=== PATIENT | male | born 1955 | race Caucasian/White ===

== ENCOUNTER 2017-09-06 18:18 | Emergency (ER) | payer OTHER, SELFPAY | END 2017-09-06 20:10 | disposition home or self-care (01) | PROVIDERS: Emergency Provider Emergency Medicine; Visit Provider Emergency Medicine | DX: K62.5 Hemorrhage of anus and rectum (principal); T14.8XXA Other injury of unspecified body region, initial encounter | CPT/HCPCS: 36415; 80048; 81003; 81015; 85025; 85610; 99058; 99283 ==

== ENCOUNTER 2017-09-21 14:16 | Emergency (ER) | payer OTHER, SELFPAY ==
[2017-09-21 14:48] VITALS: BP 101/64; PULSE 65; RESP 20; TEMP 36.3; O2SAT 97; BMI 47.5
[2017-09-21 16:10] VITALS: BP 110/67; PULSE 62; RESP 19; O2SAT 94
[2017-09-21 20:15] VITALS: BP 153/74; PULSE 61; RESP 20; O2SAT 97
[2017-09-21 21:15] VITALS: BP 127/62; PULSE 65; RESP 17; O2SAT 95
[2017-09-21 22:19] VITALS: BP 115/65; PULSE 66; RESP 17; O2SAT 94
--- NOTE | 2017-09-21 22:19 | ED.SKABFB ---
HPI - Skin/Abscess/Foreign Bdy General Chief complaint: Skin/Abscess/Foreign Body Stated complaint: States cellulitis of both legs Time Seen by Provider: 09/21/17 22:19 Source: patient, RN notes reviewed and old records reviewed Mode of arrival: ambulatory Limitations: no limitations History of Present Illness HPI narrative: Patient is a 62-year-old male who presents with multiple complaints. He is here frequently. Today he is saying that his left leg hurts and is more swollen. He has chronic lower extremity venous stasis ulcers. He said he was going to wound care today but he missed his appointment on any said he got kicked out of wound care so that is unclear. He denies any fever or chills. He says he did not berry picker his chronic pain medication prescription which is waiting for him at the pharmacy and is requesting something for pain. He was seen and evaluated September 06 with sores on his buttock. At that time he had blood work INR was 3.1 with WBC 8.1. He is afebrile here and has waited for a number of hours. MD complaint: rash and lesion Onset (ago): year(s) Related Data Home Medications Medication Instructions Recorded Confirmed carvedilol [Coreg] 25 mg PO BID #0 11/11/16 clopidogrel [Plavix] 75 mg PO EVERY OTHER DAY #0 11/11/16 lisinopril 40 mg PO QDAY #0 11/11/16 sertraline [Zoloft] 100 mg PO QDAY #0 11/11/16 tamsulosin [Flomax] 2 cap PO HS #0 11/11/16 furosemide 40 mg PO BID #0 01/12/17 gentamicin 1 camilo TOPICAL QDAYP PRN #0 07/14/17 oxycodone-acetaminophen 0 tab PO Q6HP PRN #0 07/14/17 spironolactone 50 mg PO QDAY #0 07/14/17 Previous Rx's Medication Instructions Recorded cetirizine 10 mg PO QDAY #14 tab 01/14/17 atorvastatin [Lipitor] 40 mg PO HS #30 tab 07/15/17 isosorbide mononitrate 60 mg PO QAM #30 tab 07/15/17 warfarin [Coumadin] 5 mg PO QDAY #30 tab 07/15/17 tramadol 50 mg PO Q6HP PRN #10 tab 08/08/17 hydroxyzine HCl 25 mg PO Q4HP PRN #20 tab 09/06/17 Allergies Allergy/AdvReac Type Severity Reaction Status Date / Time No Known Allergies Allergy Uncoded 08/25/17 12:08 Review of Systems Review of Systems All systems reviewed & are unremarkable except as noted in HPI and below Constitutional Denies chills, Denies fever(s), Denies lethargy and Denies weakness Cardiovascular Denies chest pain, Denies irregular heart rhythm, Denies lightheadedness, Denies palpitations, Denies dyspnea, Denies dyspnea on exertion and Denies orthopnea Respiratory Denies cough, Denies dyspnea, Denies dyspnea on exertion and Denies wheezing Gastrointestinal Gastrointestinal: Denies abdominal pain, Denies change in bowel habits, Denies diarrhea, Denies nausea and Denies vomiting Musculoskeletal Reports as per HPI Integumentary/Breasts Reports as per HPI Neurologic Denies weakness Endocrine Denies palpitations Allergic/Immunologic Denies wheezing [facility] Social History Smoking Status: Former smoker Exam Const General: cooperative and ill appearing (Chronically ill) Nutritional Appearance: obese Orientation: alert, awake, oriented x3 and not confused [facility] Head: normocephalic and atraumatic Ears: external ears normal and TM's normal bilaterally Nose: external nose normal and No nasal discharge Face and sinus: sinuses nontender, face symmetric, no sinus tenderness and No dry mucous membranes Mouth: oral mucosae normal and moist mucous membranes Teeth and gingiva: dentition normal Throat: tonsils normal and uvula midline Resp Effort & Inspection: normal respiratory effort, able to speak in complete sentences, no respiratory distress and no use of accessory muscles Auscultation: clear to auscultation bilaterally, no rales, no rhonchi and no wheezes Cardio Rate: regular rate Rhythm: regular rhythm Heart Sounds: no click, no gallops, no murmurs and no rubs Pulses: normal peripheral pulses Skin Rashes: rashes noted Other: Chronic bilateral lower venous stasis on a. No significant worsening and erythema. He does have a small open wound on left lower leg there are 2 areas 1 is actually closed in scabbed over the other still open but no gross pus or drainage. Neuro General: alert, oriented x3, gait normal and no focal motor deficits Cranial Nerves: CN's II-XI intact bilaterally Speech: speech normal Sensory Exam: no sensory deficits noted MDM - Skin/Abscess/Foreign Bdy MDM Narrative Medical decision making narrative: New dressing placed by nurse. Patient wants referral for wound care. At this time is not look to have acute infection blood work recently no abnormalities. His hemodynamically stable. Patient wanting new prescription for pain medication which is denied it is recommended he berry picker the pain medication that is waiting for him at the pharmacy which he says. Medical Records Attestation: I reviewed the patient's medical records. Discharge Plan Departure Patient Disposition: Home, Self-Care Clinical Impression: Open leg wound Discharge Date/Time: 09/22/17 00:18 Interventions: ED Discharge Assessment Last Done: 09/22/17 00:16 Instructions: Venous Stasis Ulcer Activity Restrictions/Additional Instructions: *You have been diagnosed with left leg wound *What to do: At this time does not appear in the affected but does need proper bandaging and cared for. *Take medications as directed -berry picker ear pain pill prescription *Follow up with your primary care provider in 2-3 days, call wound care tomorrow to schedule follow-up appointment *Return to ER if you should have any new, worsening or concerning symptoms Prescriptions: No Action carvedilol [Coreg] 25 MG tablet 25 mg PO BID Qty: 0 RF: 0 clopidogrel [Plavix] 75 MG tablet 75 mg PO EVERY OTHER DAY Qty: 0 RF: 0 lisinopril 40 MG tablet 40 mg PO QDAY Qty: 0 RF: 0 sertraline [Zoloft] 100 MG tablet 100 mg PO QDAY Qty: 0 RF: 0 tamsulosin [Flomax] 0.4 MG capsule,extended release 24hr 2 cap PO HS Qty: 0 RF: 0 furosemide 40 MG tablet 40 mg PO BID Qty: 0 RF: 0 cetirizine 10 MG tablet 10 mg PO QDAY Qty: 14 RF: 0 gentamicin 0.1 % ointment 1 camilo Topical QDAYP PRNQty: 0 RF: 0 spironolactone 25 MG tablet 50 mg PO QDAY Qty: 0 RF: 0 oxycodone-acetaminophen 5 MG/325 MG tablet PO Q6HP PRNQty: 0 RF: 0 atorvastatin [Lipitor] 40 MG tablet 40 mg PO HS Qty: 30 RF: 0 isosorbide mononitrate 60 MG tablet extended release 24 hr 60 mg PO QAM Qty: 30 RF: 0 warfarin [Coumadin] 5 MG tablet 5 mg PO QDAY Qty: 30 RF: 0 tramadol 50 MG tablet 50 mg PO Q6HP PRNQty: 10 RF: 0 hydroxyzine HCl 25 MG tablet 25 mg PO Q4HP PRNQty: 20 RF: 0
[2017-09-21] MEDS: KETOROLAC 60 MG/2 ML VIAL 30 MG IM (23:54)
--- NOTE | 2017-09-22 00:02 | ED_ITS ---
HPI - Skin/Abscess/Foreign Bdy General Chief complaint: Skin/Abscess/Foreign Body Stated complaint: States cellulitis of both legs Time Seen by Provider: 09/21/17 22:19 Source: patient, RN notes reviewed and old records reviewed Mode of arrival: ambulatory Limitations: no limitations History of Present Illness HPI narrative: Patient is a 62-year-old male who presents with multiple complaints. He is here frequently. Today he is saying that his left leg hurts and is more swollen. He has chronic lower extremity venous stasis ulcers. He said he was going to wound care today but he missed his appointment on any said he got kicked out of wound care so that is unclear. He denies any fever or chills. He says he did not bean picker his chronic pain medication prescription which is waiting for him at the pharmacy and is requesting something for pain. He was seen and evaluated September 06 with sores on his buttock. At that time he had blood work INR was 3.1 with WBC 8.1. He is afebrile here and has waited for a number of hours. MD complaint: rash and lesion Onset (ago): year(s) Related Data Home Medications Medication Instructions Recorded Confirmed carvedilol [Coreg] 25 mg PO BID #0 11/11/16 clopidogrel [Plavix] 75 mg PO EVERY OTHER DAY #0 11/11/16 lisinopril 40 mg PO QDAY #0 11/11/16 sertraline [Zoloft] 100 mg PO QDAY #0 11/11/16 tamsulosin [Flomax] 2 cap PO HS #0 11/11/16 furosemide 40 mg PO BID #0 01/12/17 gentamicin 1 camilo TOPICAL QDAYP PRN #0 07/14/17 oxycodone-acetaminophen 0 tab PO Q6HP PRN #0 07/14/17 spironolactone 50 mg PO QDAY #0 07/14/17 Previous Rx's Medication Instructions Recorded cetirizine 10 mg PO QDAY #14 tab 01/14/17 atorvastatin [Lipitor] 40 mg PO HS #30 tab 07/15/17 isosorbide mononitrate 60 mg PO QAM #30 tab 07/15/17 warfarin [Coumadin] 5 mg PO QDAY #30 tab 07/15/17 tramadol 50 mg PO Q6HP PRN #10 tab 08/08/17 hydroxyzine HCl 25 mg PO Q4HP PRN #20 tab 09/06/17 Allergies Allergy/AdvReac Type Severity Reaction Status Date / Time No Known Allergies Allergy Uncoded 08/25/17 12:08 Review of Systems Review of Systems All systems reviewed & are unremarkable except as noted in HPI and below Constitutional Denies chills, Denies fever(s), Denies lethargy and Denies weakness Cardiovascular Denies chest pain, Denies irregular heart rhythm, Denies lightheadedness, Denies palpitations, Denies dyspnea, Denies dyspnea on exertion and Denies orthopnea Respiratory Denies cough, Denies dyspnea, Denies dyspnea on exertion and Denies wheezing Gastrointestinal Gastrointestinal: Denies abdominal pain, Denies change in bowel habits, Denies diarrhea, Denies nausea and Denies vomiting Musculoskeletal Reports as per HPI Integumentary/Breasts Reports as per HPI Neurologic Denies weakness Endocrine Denies palpitations Allergic/Immunologic Denies wheezing [facility] Social History Smoking Status: Former smoker Exam Const General: cooperative and ill appearing (Chronically ill) Nutritional Appearance: obese Orientation: alert, awake, oriented x3 and not confused [facility] Head: normocephalic and atraumatic Ears: external ears normal and TM's normal bilaterally Nose: external nose normal and No nasal discharge Face and sinus: sinuses nontender, face symmetric, no sinus tenderness and No dry mucous membranes Mouth: oral mucosae normal and moist mucous membranes Teeth and gingiva: dentition normal Throat: tonsils normal and uvula midline Resp Effort & Inspection: normal respiratory effort, able to speak in complete sentences, no respiratory distress and no use of accessory muscles Auscultation: clear to auscultation bilaterally, no rales, no rhonchi and no wheezes Cardio Rate: regular rate Rhythm: regular rhythm Heart Sounds: no click, no gallops, no murmurs and no rubs Pulses: normal peripheral pulses Skin Rashes: rashes noted Other: Chronic bilateral lower venous stasis on a. No significant worsening and erythema. He does have a small open wound on left lower leg there are 2 areas 1 is actually closed in scabbed over the other still open but no gross pus or drainage. Neuro General: alert, oriented x3, gait normal and no focal motor deficits Cranial Nerves: CN's II-XI intact bilaterally Speech: speech normal Sensory Exam: no sensory deficits noted MDM - Skin/Abscess/Foreign Bdy MDM Narrative Medical decision making narrative: New dressing placed by nurse. Patient wants referral for wound care. At this time is not look to have acute infection blood work recently no abnormalities. His hemodynamically stable. Patient wanting new prescription for pain medication which is denied it is recommended he bean picker the pain medication that is waiting for him at the pharmacy which he says. Medical Records Attestation: I reviewed the patient's medical records. Discharge Plan Departure Patient Disposition: Home, Self-Care Clinical Impression: Open leg wound Discharge Date/Time: 09/22/17 00:18 Interventions: ED Discharge Assessment Last Done: 09/22/17 00:16 Instructions: Venous Stasis Ulcer Activity Restrictions/Additional Instructions: *You have been diagnosed with left leg wound *What to do: At this time does not appear in the affected but does need proper bandaging and cared for. *Take medications as directed -bean picker ear pain pill prescription *Follow up with your primary care provider in 2-3 days, call wound care tomorrow to schedule follow-up appointment *Return to ER if you should have any new, worsening or concerning symptoms Prescriptions: No Action carvedilol [Coreg] 25 MG tablet 25 mg PO BID Qty: 0 RF: 0 clopidogrel [Plavix] 75 MG tablet 75 mg PO EVERY OTHER DAY Qty: 0 RF: 0 lisinopril 40 MG tablet 40 mg PO QDAY Qty: 0 RF: 0 sertraline [Zoloft] 100 MG tablet 100 mg PO QDAY Qty: 0 RF: 0 tamsulosin [Flomax] 0.4 MG capsule,extended release 24hr 2 cap PO HS Qty: 0 RF: 0 furosemide 40 MG tablet 40 mg PO BID Qty: 0 RF: 0 cetirizine 10 MG tablet 10 mg PO QDAY Qty: 14 RF: 0 gentamicin 0.1 % ointment 1 camilo Topical QDAYP PRNQty: 0 RF: 0 spironolactone 25 MG tablet 50 mg PO QDAY Qty: 0 RF: 0 oxycodone-acetaminophen 5 MG/325 MG tablet PO Q6HP PRNQty: 0 RF: 0 atorvastatin [Lipitor] 40 MG tablet 40 mg PO HS Qty: 30 RF: 0 isosorbide mononitrate 60 MG tablet extended release 24 hr 60 mg PO QAM Qty: 30 RF: 0 warfarin [Coumadin] 5 MG tablet 5 mg PO QDAY Qty: 30 RF: 0 tramadol 50 MG tablet 50 mg PO Q6HP PRNQty: 10 RF: 0 hydroxyzine HCl 25 MG tablet 25 mg PO Q4HP PRNQty: 20 RF: 0
[2017-09-22 00:16] VITALS: BP 146/83; PULSE 87; RESP 18
== END 2017-09-22 00:18 | disposition home or self-care (01) ==
PROVIDERS: Emergency Provider Emergency Medicine
DX: S81.802A Unspecified open wound, left lower leg, initial encounter (principal)
CPT/HCPCS: 96372; 99283; J1885

== ENCOUNTER 2017-10-25 15:17 | Emergency (ER) | payer OTHER, SELFPAY ==
[2017-10-25 15:19] VITALS: BP 120/70; PULSE 82; RESP 18; TEMP 36.7; O2SAT 98; BMI 47.5
[2017-10-25 15:56] LABS: Hematocrit 37.1 % (41-53); Hemoglobin 12.6 g/dL (13.5-17.5); Mean Corpuscular HGB Conc 33.9 % (30-36); Mean Corpuscular Hemoglobin 30.9 PG (26-34); Mean Corpuscular Volume 91.1 fL (80-100); Platelet Count 291 X10^3/uL (150-400); Red Blood Cell Count 4.08 X10^6/uL (4.5-5.9); Red Cell Distribution Width 17.3 % (11.6-14.8); White Blood Cell Count 7.5 X10^3/uL (4.5-11.0)
[2017-10-25 15:59] LABS: Alanine Aminotransferase 31 IU/L (21-72); Albumin 3.9 g/dL (3.5-5.0); Alkaline Phosphatase 93 U/L (38-126); Aspartate Aminotransferase 24 IU/L (17-59); BUN Creatinine Ratio 17.2 (6-22); Bilirubin Total 0.4 mg/dL (0.2-1.3); Blood Urea Nitrogen 31 mg/dL (9-20); Calcium 9.2 mg/dL (8.4-10.2); Carbon Dioxide 24 mmol/L (22-32); Chloride 104 mmol/L (98-107); Estimated Glomerular Filt Rate 38.2 mL/min (>60); Glucose 111 mg/dL (80-110); HEMOLYSIS 25 (0-50); Potassium 4.5 mmol/L (3.4-5.1); Sodium 141 mmol/L (137-145); Total Protein 7.9 g/dL (6.3-8.2)
[2017-10-25 16:15] LABS: Neutrophils Absolute Manual 4575 /uL (3000-5900); RBC Morphology Normal Morphology; Total Cells Counted 100
[2017-10-25 16:16] LABS: Prothrombin Time 49.9 SECONDS (10.1-12.7)
[2017-10-25 16:17] LABS: INR 4.7 (0.9-1.3)
--- NOTE | 2017-10-25 16:25 | PC.NURSE ---
received critical INR result 4.7 MD notified
--- NOTE | 2017-10-25 18:16 | ED_ITS ---
HPI - General Adult General Chief complaint: Extremity Injury, Upper Stated complaint: PAIN ALL OVER Time Seen by Provider: 10/25/17 17:02 Source: patient Mode of arrival: ambulatory Limitations: no limitations History of Present Illness HPI narrative: 62-year-old male here for evaluation of swelling in bilateral lower extremities and also swelling now in his upper extremities. He states that this is not new but has been worsening over the past several days/weeks. He states that he has Lasix at home. He states that he takes 20 mg 2 times a day. Patient states that he has not seen his primary doctor in some time. He states that over the past several days he has had more problems with walking. He states that it that is not because he is short of breath but because he is having pain in his lower extremities. Denies any chest pain. Says that he has been taking ibuprofen for the pain prior to arriva patient states that he is on Coumadin. He states that he takes 5 mg a day. He states that he has been on this for ?years now ?has not had any change in his diet. States he has lost weight recently. l Related Data Home Medications Medication Instructions Recorded Confirmed carvedilol [Coreg] 25 mg PO BID #0 11/11/16 clopidogrel [Plavix] 75 mg PO EVERY OTHER DAY #0 11/11/16 lisinopril 40 mg PO QDAY #0 11/11/16 sertraline [Zoloft] 100 mg PO QDAY #0 11/11/16 tamsulosin [Flomax] 2 cap PO HS #0 11/11/16 furosemide 40 mg PO BID #0 01/12/17 gentamicin 1 camilo TOPICAL QDAYP PRN #0 07/14/17 oxycodone-acetaminophen 0 tab PO Q6HP PRN #0 07/14/17 spironolactone 50 mg PO QDAY #0 07/14/17 Previous Rx's Medication Instructions Recorded cetirizine 10 mg PO QDAY #14 tab 01/14/17 atorvastatin [Lipitor] 40 mg PO HS #30 tab 07/15/17 isosorbide mononitrate 60 mg PO QAM #30 tab 07/15/17 warfarin [Coumadin] 5 mg PO QDAY #30 tab 07/15/17 tramadol 50 mg PO Q6HP PRN #10 tab 08/08/17 hydroxyzine HCl 25 mg PO Q4HP PRN #20 tab 09/06/17 Allergies Allergy/AdvReac Type Severity Reaction Status Date / Time No Known Drug Allergies Allergy Verified 10/25/17 15:23 Review of Systems Constitutional Denies chills, Reports fatigue, Denies fever(s), Reports lethargy and Denies weakness Cardiovascular Denies chest pain, Denies diaphoresis, Denies rapid heart rate, Reports pedal edema, Reports edema, Denies irregular heart rhythm, Denies lightheadedness, Denies palpitations, Denies dyspnea and Denies orthopnea Respiratory Denies cough, Denies pain on inspiration and Denies dyspnea Gastrointestinal Gastrointestinal: Denies constipation, Denies diarrhea, Denies nausea and Denies vomiting Genitourinary Denies dysuria Musculoskeletal Reports myalgias, Reports arthralgias and Denies joint swelling Integumentary/Breasts Denies pruritus, Denies new lesions, Denies rash and Denies skin ulcer Neurologic Denies weakness Endocrine Reports fatigue and Denies palpitations Hematologic/Lymphatic Denies easy bruising [facility] Social History Smoking Status: Former smoker Exam Initial Vital Signs Initial Vital Signs: Vital Signs Temperature 98.1 F 10/25/17 15:19 Pulse Rate 82 10/25/17 15:19 Respiratory Rate 18 10/25/17 15:19 Blood Pressure 120/70 10/25/17 15:19 Pulse Oximetry 98 10/25/17 15:19 Const General: cooperative, comfortable and No acute distress Nutritional Appearance: obese Orientation: not alert, not awake and not oriented x3 HENMT Head: normal to inspection and normocephalic Chest Chest: normal inspection of the chest Resp Effort & Inspection: normal respiratory effort Cardio Rate: regular rate Rhythm: regular rhythm Skin General: no rashes or lesions noted, No jaundice and No petechiae Neuro Other: Sensation intact to light touch bilateral lower extremities and upper extremities Extrem Other: Patient with 1+ pitting edema from the ankles to the knees. No signs of ulcerations. No signs of cellulitis. Patient also with swelling of bilateral hands. This is not pitting edema. Course Orders Ordered: ED Orders 10/25/17 19:30 EKG-12 Lead Stat Discontinued Medications Hydromorphone HCl (Dilaudid) 1 mg IM Q4H PRN PRN Reason: Pain, Severe Last Admin: 10/25/17 20:18 Dose: 1 mg Vital Signs - 8 hr 10/25/17 20:28 Pulse Rate 69 Respiratory Rate 16 Blood Pressure 155/77 H Pulse Oximetry 98 Medical Decision Making [facility] Narrative Medical decision making narrative: Patient with bilateral lower extremity edema. Also has an elevated INR. No signs of active bleeding. He EKG is unremarkable. How long discussion with the patient regarding his symptoms. We discussed the importance of him following up with his primary doctor secondary to his chronic medical conditions. He expressed understanding with this. We discussed a course of action with regard to his elevated INR. He is going to skip the next 2 doses of his Coumadin and then due to half doses prior to returning back to his normal 5 mg a day. He was instructed that he did need to follow up with his primary doctor regarding this. Will also increase his Lasix to 40 mg twice a day to help with mobilization of the lower extremity edema. I suspect this is why he is having tenderness in his legs and also his upper extremity. His physical exam and history is not consistent with ACS. He was given return precautions. He expressed understanding and agreement with plan. Patient is not clinically in heart failure. Lab Data Result diagrams: 10/25/17 15:28 10/25/17 15:28 Lab Results 10/25/17 10/25/17 10/25/17 Range/Units 15:28 15:28 15:28 WBC 7.5 (4.5-11.0) X10^3/uL RBC 4.08 L (4.5-5.9) X10^6/uL Hgb 12.6 L (13.5-17.5) g/dL Hct 37.1 L (41-53) % MCV 91.1 (80-100) fL MCH 30.9 (26-34) PG MCHC 33.9 (30-36) % RDW 17.3 H (11.6-14.8) % Plt Count 291 (150-400) X10^3/uL Total Counted 100 Seg Neutrophils % 58.0 (38-70) % Band Neutrophils % 3.0 (3-7) % Lymphocytes % (Manual) 25.0 (25-45) % Atypical Lymphs % 1.0 H ( - 0) % Monocytes % (Manual) 9.0 (2-11) % Eosinophils % (Manual) 3.0 (2-4) % Basophils % (Manual) 1.0 (0-1) % Neutrophils # (Manual) 4575 (3784-4518) /uL RBC Morphology Normal morphology PT 49.9 H (10.1-12.7) SECONDS INR 4.7 H* (0.9-1.3) Sodium 141 (137-145) mmol/L Potassium 4.5 (3.4-5.1) mmol/L Chloride 104 (98-107) mmol/L Carbon Dioxide 24 (22-32) mmol/L BUN 31 H (9-20) mg/dL Creatinine 1.80 H (0.66-1.25) mg/dL Estimated GFR 38.2 L (>60) mL/min BUN/Creatinine Ratio 17.2 (6-22) Glucose 111 H (80-110) mg/dL Calcium 9.2 (8.4-10.2) mg/dL Total Bilirubin 0.4 (0.2-1.3) mg/dL AST 24 (17-59) IU/L ALT 31 (21-72) IU/L Alkaline Phosphatase 93 (38-126) U/L Total Protein 7.9 (6.3-8.2) g/dL Albumin 3.9 (3.5-5.0) g/dL Globulin 4.0 (1.7-4.1) g/dL Albumin/Globulin Ratio 1.0 (1.0-2.8) ECG Data Attestation: I personally reviewed and interpreted this ECG as follows: Prior ECG tracings: not available for review Interpretation: Sinus rhythm Ventricular rate is 68 Normal axis LVH Nonspecific ST T wave changes Normal QRS Discharge Plan Departure Patient Disposition: Home, Self-Care Clinical Impression: Dependent edema, Congestive heart failure Discharge Date/Time: 10/25/17 20:28 Interventions: ED Discharge Assessment Last Done: 10/25/17 20:28 Instructions: DI for Heart Failure, DI for Dependent Edema Activity Restrictions/Additional Instructions: You have medical conditions that require regular follow-up with her primary doctor. I highly recommend that you contact your primary doctor to schedule follow-up appointments on a regular basis. I would recommend that you increase your Lasix to 40 mg 2 times a day. I would also recommend that you skip the next 2 days of your Coumadin and then on the 3rd day and 4th day take 1/2 dose and then on the 5th day start back at her normal regiment. It is important that you have your INR checked on a regular basis. Return to the emergency department for any new or worsening symptoms Prescriptions: No Action carvedilol [Coreg] 25 MG tablet 25 mg PO BID Qty: 0 RF: 0 clopidogrel [Plavix] 75 MG tablet 75 mg PO EVERY OTHER DAY Qty: 0 RF: 0 lisinopril 40 MG tablet 40 mg PO QDAY Qty: 0 RF: 0 sertraline [Zoloft] 100 MG tablet 100 mg PO QDAY Qty: 0 RF: 0 tamsulosin [Flomax] 0.4 MG capsule,extended release 24hr 2 cap PO HS Qty: 0 RF: 0 furosemide 40 MG tablet 40 mg PO BID Qty: 0 RF: 0 cetirizine 10 MG tablet 10 mg PO QDAY Qty: 14 RF: 0 gentamicin 0.1 % ointment 1 camilo Topical QDAYP PRNQty: 0 RF: 0 spironolactone 25 MG tablet 50 mg PO QDAY Qty: 0 RF: 0 oxycodone-acetaminophen 5 MG/325 MG tablet PO Q6HP PRNQty: 0 RF: 0 atorvastatin [Lipitor] 40 MG tablet 40 mg PO HS Qty: 30 RF: 0 isosorbide mononitrate 60 MG tablet extended release 24 hr 60 mg PO QAM Qty: 30 RF: 0 warfarin [Coumadin] 5 MG tablet 5 mg PO QDAY Qty: 30 RF: 0 tramadol 50 MG tablet 50 mg PO Q6HP PRNQty: 10 RF: 0 hydroxyzine HCl 25 MG tablet 25 mg PO Q4HP PRNQty: 20 RF: 0
--- NOTE | 2017-10-25 18:24 | PC.NURSE ---
Pt reports worsening chronic bilat lower ext pain for months, difficulty ambulating more than a block and half r/t pain, denies cough/soa/cp/nausea/vomiting/diarrhea/fever or other sx. Amb ind with cane to room, distal cms intact, bilat lower ext +1 edema present and reported as chronic, pt requesting pain control, states it just isn't getting better
[2017-10-25 19:37] VITALS: BP 131/64; PULSE 70; O2SAT 95
[2017-10-25] MEDS: HYDROMORPHONE 2 MG INJ 1 MG IM (20:18)
[2017-10-25 20:28] VITALS: BP 155/77; PULSE 69; RESP 16; O2SAT 98
== END 2017-10-25 20:28 | disposition home or self-care (01) ==
PROVIDERS: Nurse Practitioner Family; Emergency Provider Emergency Medicine
DX: R60.9 Edema, unspecified (principal); I50.9 Heart failure, unspecified
CPT/HCPCS: 36415; 80053; 85025; 85610; 93005; 96372; 99282; 99284; J1170